=== PATIENT | female | born 1940 | race African-American/Black ===

== ENCOUNTER 2018-10-02 19:00 | Emergency (ER) | payer MEDICARE, MEDICAID ==
[~2018-10-02] VITALS: Ht 170.2 cm; Wt 80.0 kg
[~2018-10-02 19:00] MED LIST: AMLO10TA4; GLIM2TAB2; LEVO112T2; LEVO112T7; LOT10; ZET10 PO
[2018-10-02 20:30] VITALS: BP 129/56
== END 2018-10-02 20:27 | disposition home or self-care (01) ==
LOC: ER 19:00
DX: T49.0X1A Poisoning by local antifungal, anti-infective and anti-inflammatory drugs, accidental (unintentional), initial encounter (principal); I10 Essential (primary) hypertension; Y92.018 Other place in single-family (private) house as the place of occurrence of the external cause
CPT/HCPCS: 99283

== ENCOUNTER 2020-01-28 12:38 | Inpatient (IN) | payer MEDICARE, MEDICAID ==
[~2020-01-28] VITALS: Ht 162.6 cm; Wt 68.9 kg
[~2020-01-28 12:38] MED LIST changes: +BENA10TA75; +EZET10TA13 PO; -GLIM2TAB2; +GLIM2TAB30; -LOT10; -ZET10 PO
[2020-01-28 15:12] LABS: BASOPHILS % 0.7 % (0.0-2.0); EOSINOPHILS % 1.2 % (0.0-5.0); HEMATOCRIT. 37.6 % (36.0-48.0); HEMOGLOBIN. 12.6 g/dL (12.0-16.0); LYMPHOCYTES % 38.8 % (20.0-50.0); MEAN CORPUSCULAR HEMOGLOBIN 29.9 pg (28.0-32.0); MEAN CORPUSCULAR VOLUME 89.4 fL (81.0-99.0); MONOCYTES % 8.6 % (2.0-8.0); NEUTROPHILS % 50.7 % (40.0-76.0); PLATELET 203 x1000/uL (130-400); RED BLOOD CELL COUNT 4.21 mill/uL (4.2-5.4)
[2020-01-28 15:17] LABS: CHLORIDE 108 mEq/L (98-107)
[2020-01-28] MEDS ORDERED: POTASSIUM CHLORIDE 20MEQ TABLET SR PO ONE ×2 (16:15→17:00)
[2020-01-28] MEDS ORDERED: KCL 10MEQ/50ML PREMIX 50 ML IV ONE (16:15)
[2020-01-28] MEDS ORDERED: ACETAMINOPHEN 325MG TABLET PO PRN (17:00)
[2020-01-28] MEDS ORDERED: ONDANSETRON HCL 4MG/2ML INJ IV PRN (17:00)
[2020-01-28] MEDS: KCL 10MEQ/50ML PREMIX 50 ML IV SCH ×2 (17:00→20:38)
[2020-01-29 08:28] LABS: BASOPHILS % 0.5 % (0.0-2.0); EOSINOPHILS % 2.3 % (0.0-5.0); HEMATOCRIT. 35.4 % (36.0-48.0); HEMOGLOBIN. 11.7 g/dL (12.0-16.0); LYMPHOCYTES % 34.4 % (20.0-50.0); MEAN CORPUSCULAR HEMOGLOBIN 29.8 pg (28.0-32.0); MEAN CORPUSCULAR VOLUME 90.2 fL (81.0-99.0); MEAN PLATELET VOLUME 9.2 fl (7.4-10.4); MONOCYTES % 11.3 % (2.0-8.0); NEUTROPHILS % 51.5 % (40.0-76.0); PLATELET 188 x1000/uL (130-400); RED BLOOD CELL COUNT 3.92 mill/uL (4.2-5.4); RED CELL DISTRIBUTION WIDTH 14.8 % (11.6-14.6)
[2020-01-29 08:35] LABS: CHLORIDE 111 mEq/L (98-107)
[2020-01-29 10:00] VITALS: BP 105/40
[2020-01-29] MEDS ORDERED: POTASSIUM CHLORIDE 20MEQ TABLET SR PO NR (10:30)
[2020-01-29 10:39] VITALS: BP 105/40
[2020-01-29] MEDS: HEPARIN 5000 UNITS/ML VIAL SUBCUT SCH ×2 (11:52→20:50)
[2020-01-29 12:00] VITALS: BP 113/43
[2020-01-29] MEDS ORDERED: POTASSIUM CHLORIDE INJ 40 MEQ in DEXT 5% WATER 250 ML IV NR (13:00)
[2020-01-29] MEDS ORDERED: IBUP-2030 MT (13:32)
[2020-01-29] MEDS ORDERED: CHOL200077 MT (13:32)
[2020-01-29] MEDS ORDERED: LEVO88TA7 MT (13:32)
[2020-01-29 16:00] VITALS: BP 108/44
[2020-01-29 20:00] VITALS: BP 125/61
[2020-01-30] VITALS: BP 117/55
[2020-01-30 04:00] VITALS: BP 130/69
[2020-01-30 07:07] LABS: CHLORIDE 109 mEq/L (98-107)
[2020-01-30 08:00] VITALS: BP 146/69
[2020-01-30 08:17] LABS: BASOPHILS % 0.3 % (0.0-2.0); EOSINOPHILS % 2.4 % (0.0-5.0); HEMATOCRIT. 38.4 % (36.0-48.0); HEMOGLOBIN. 12.7 g/dL (12.0-16.0); LYMPHOCYTES % 44.2 % (20.0-50.0); MEAN CORPUSCULAR HEMOGLOBIN 29.9 pg (28.0-32.0); MEAN CORPUSCULAR VOLUME 90.7 fL (81.0-99.0); MEAN PLATELET VOLUME 9.5 fl (7.4-10.4); NEUTROPHILS % 43.1 % (40.0-76.0); PLATELET 191 x1000/uL (130-400); RED BLOOD CELL COUNT 4.24 mill/uL (4.2-5.4); RED CELL DISTRIBUTION WIDTH 15.1 % (11.6-14.6)
[2020-01-30] MEDS: HEPARIN 5000 UNITS/ML VIAL SUBCUT SCH (08:55)
[2020-01-30 11:59] VITALS: BP 122/54
== END 2020-01-30 12:30 | disposition home or self-care (01) | DRG 640 ==
LOC: ER 12:38 → 5WST 16:08 → EDBEDREQTM 16:12 → EDBEDREQ 16:12 → ENRESERV 01-29 07:40
PROVIDERS: ADMIT Internal Medicine; ATTEND Internal Medicine
DX: E87.6 Hypokalemia (principal); I50.41 Acute combined systolic (congestive) and diastolic (congestive) heart failure; Z87.891 Personal history of nicotine dependence; E03.9 Hypothyroidism, unspecified; I95.9 Hypotension, unspecified; E78.5 Hyperlipidemia, unspecified; Z79.84 Long term (current) use of oral hypoglycemic drugs; Z79.899 Other long term (current) drug therapy; Z82.49 Family history of ischemic heart disease and other diseases of the circulatory system; I11.0 Hypertensive heart disease with heart failure
CPT/HCPCS: 36415; 71045; 80053; 80061; 83735; 83880; 84443; 84484; 85025; 93005; 93306; 97162; 97535; 99291; J1644; J3480; J7060

== ENCOUNTER 2023-03-18 13:13 | Inpatient (IN) | payer MEDICARE, MEDICAID ==
[~2023-03-18] VITALS: Ht 167.6 cm; Wt 60.8 kg
[~2023-03-18 13:13] MED LIST changes: +CHOL200077 MT; -GLIM2TAB30; +IBUP-2030 MT; -LEVO112T2; -LEVO112T7; +LEVO88TA7 MT
[2023-03-18 14:36] LABS: BASOPHILS % 0.5 % (0.0-2.0); HEMATOCRIT. 31.4 % (36.0-48.0); HEMOGLOBIN. 10.2 g/dL (12.0-16.0); LYMPHOCYTES % 34.2 % (20.0-50.0); MEAN CORPUSCULAR HEMOGLOBIN 31.4 pg (28.0-32.0); MEAN CORPUSCULAR VOLUME 96.3 fL (81.0-99.0); MEAN PLATELET VOLUME 9.6 fl (7.4-10.4); MONOCYTES % 12.1 % (2.0-8.0); NEUTROPHILS % 52.2 % (40.0-76.0); PLATELET 256 x1000/uL (130-400); RED BLOOD CELL COUNT 3.25 mill/uL (4.2-5.4); RED CELL DISTRIBUTION WIDTH 15.6 % (11.6-14.6)
[2023-03-18 14:54] LABS: CHLORIDE 104 mEq/L (98-107)
[2023-03-18] MEDS ORDERED: POTASSIUM CHLORIDE 20MEQ/PACKET PO ONE (15:45)
[2023-03-18] MEDS ORDERED: POTASSIUM CHLORIDE 20MEQ/PACKET PO NR (19:00)
[2023-03-18] MEDS ORDERED: IPRATROPIUM/ALBUTEROL 0.5-3(2.5)MG/3ML NEB NEB PRN (22:45)
[2023-03-18] MEDS ORDERED: LORAZEPAM 2MG/ML CPJ IV PRN (22:45)
[2023-03-18] MEDS ORDERED: MORPHINE SULFATE 2 MG/ML CPJ (NOT FOR IM USE) IV PRN (22:45)
[2023-03-18] MEDS ORDERED: HYDROCODONE/ACETAMINOPHEN 5/325MG TABLET PO PRN (22:45)
[2023-03-18] MEDS ORDERED: ONDANSETRON HCL 4MG/2ML INJ IV PRN (22:45)
[2023-03-19 00:35] VITALS: BP 118/52; PULSE 93; RESP 18; TEMP 99.3
[2023-03-19 04:00] VITALS: BP 118/52; PULSE 93; RESP 18; TEMP 99.3
[2023-03-19 08:00] VITALS: BP 115/47; PULSE 92; RESP 19; TEMP 98.1
[2023-03-19] MEDS: SODIUM CHLORIDE 0.9% 1,000 ML IV SCH ×2 (08:30→18:30)
[2023-03-19 12:00] VITALS: BP 122/57; PULSE 72; RESP 17; TEMP 98.3
[2023-03-19 13:51] LABS: BASOPHILS % 0.4 % (0.0-2.0); EOSINOPHILS % 0.8 % (0.0-5.0); HEMATOCRIT. 33.6 % (36.0-48.0); LYMPHOCYTES % 25.5 % (20.0-50.0); MEAN CORPUSCULAR HEMOGLOBIN 31.3 pg (28.0-32.0); MEAN CORPUSCULAR VOLUME 95.8 fL (81.0-99.0); MEAN PLATELET VOLUME 10.2 fl (7.4-10.4); MONOCYTES % 11.1 % (2.0-8.0); NEUTROPHILS % 62.2 % (40.0-76.0); PLATELET 278 x1000/uL (130-400); RED BLOOD CELL COUNT 3.51 mill/uL (4.2-5.4); RED CELL DISTRIBUTION WIDTH 16.2 % (11.6-14.6)
[2023-03-19] MEDS: ENOXAPARIN 30MG/0.3ML SYR SUBCUT SCH (13:51)
[2023-03-19 14:09] LABS: CHLORIDE 104 mEq/L (98-107)
[2023-03-19 15:16] LABS: HEPATITIS B SURFACE ANTIGEN NEGATIVE
[2023-03-19 16:00] VITALS: BP 114/47; PULSE 81; RESP 19; TEMP 97.9
[2023-03-19 20:00] VITALS: BP 111/52; PULSE 78; RESP 19; TEMP 96.8
[2023-03-20] VITALS: BP 110/57; PULSE 72; RESP 19; TEMP 98.4
[2023-03-20 04:00] VITALS: BP 104/58; PULSE 89; RESP 19; TEMP 98.2
[2023-03-20 07:55] LABS: BASOPHILS % 0.5 % (0.0-2.0); EOSINOPHILS % 1.8 % (0.0-5.0); HEMATOCRIT. 32.7 % (36.0-48.0); HEMOGLOBIN. 10.6 g/dL (12.0-16.0); LYMPHOCYTES % 35.2 % (20.0-50.0); MEAN CORPUSCULAR HEMOGLOBIN 31.6 pg (28.0-32.0); MEAN CORPUSCULAR VOLUME 97.4 fL (81.0-99.0); MEAN PLATELET VOLUME 8.8 fl (7.4-10.4); MONOCYTES % 8.4 % (2.0-8.0); NEUTROPHILS % 54.1 % (40.0-76.0); PLATELET 179 x1000/uL (130-400); RED BLOOD CELL COUNT 3.35 mill/uL (4.2-5.4)
[2023-03-20 08:00] VITALS: BP 107/52; PULSE 87; RESP 20; TEMP 98.2
[2023-03-20 08:04] LABS: CHLORIDE 106 mEq/L (98-107); TOTAL IRON BINDING CAPACITY 151 ug/dL (250-450)
[2023-03-20 08:29] LABS: FOLIC ACID (FOLATE) SERUM 3.7 ng/mL (>5.38)
[2023-03-20] MEDS: POTASSIUM CHLORIDE 20MEQ TABLET SR PO SCH ×3 (09:00→17:44)
[2023-03-20] MEDS: ENOXAPARIN 30MG/0.3ML SYR SUBCUT SCH (09:00)
[2023-03-20] MEDS ORDERED: CYANOCOBALAMIN 1000MCG/ML VIAL IM SCH (10:30)
[2023-03-20 12:00] VITALS: BP 113/53; PULSE 96; RESP 20; TEMP 87.1
[2023-03-20] MEDS ORDERED: NALOXONE HCL 0.4MG/ML VIAL IV PRN (13:00)
[2023-03-20] MEDS: SODIUM CHLORIDE 0.9% 1,000 ML IV SCH (13:46)
[2023-03-20 16:00] VITALS: BP 110/72; PULSE 81; RESP 22; TEMP 97.8
[2023-03-20] MEDS: DEXAMETHASONE 4MG/ML 1ML VIAL IV SCH ×2 (17:46→23:55)
[2023-03-20 20:00] VITALS: BP 115/67; PULSE 95; RESP 19; TEMP 97.7
[2023-03-21] VITALS: BP 143/59; PULSE 94; RESP 18; TEMP 97.9
[2023-03-21] MEDS: SODIUM CHLORIDE 0.9% 1,000 ML IV SCH ×3 (00:30→11:22)
[2023-03-21] MEDS: DEXT 5%/LACTATED RINGERS 1,000 ML IV SCH ×2 (00:53→13:30)
[2023-03-21 04:00] VITALS: BP 125/56; PULSE 84; RESP 16; TEMP 97.5
[2023-03-21] MEDS: DEXAMETHASONE 4MG/ML 1ML VIAL IV SCH ×3 (05:55→17:33)
[2023-03-21 08:00] VITALS: BP 109/62; PULSE 87; RESP 18; TEMP 97.8
[2023-03-21] MEDS ORDERED: FOLIC ACID 1MG TABLET PO SCH (09:00)
[2023-03-21] MEDS ORDERED: ASCORBIC ACID 500 MG TABLET PO SCH (09:00)
[2023-03-21 12:00] VITALS: BP 96/57; PULSE 94; RESP 18; TEMP 98.3
[2023-03-21 16:00] VITALS: BP 114/63; PULSE 82; RESP 20; TEMP 97.9
[2023-03-21 16:35] LABS: T4 FREE 1.01 ng/dL (0.76-1.46)
[2023-03-21 20:00] VITALS: BP 121/52; PULSE 72; RESP 18; TEMP 96.8
[2023-03-22] VITALS (18 sets, daily range): BP systolic 98–153; BP diastolic 50–96; PULSE 67–101; RESP 12–32; TEMP 96.6–98.2
[2023-03-22] MEDS: DEXT 5%/LACTATED RINGERS 1,000 ML IV SCH ×2 (02:40→18:14)
[2023-03-22 07:34] LABS: CHLORIDE 109 mEq/L (98-107)
[2023-03-22] MEDS ORDERED: MAGNESIUM GLUCONATE 500MG TABLET PO SCH (08:45)
[2023-03-22] MEDS ORDERED: POTASSIUM CHLORIDE 20MEQ TABLET SR PO SCH (08:45)
[2023-03-22 11:04] LABS: BASOPHILS % 0.1 % (0.0-2.0); HEMOGLOBIN. 9.1 g/dL (12.0-16.0); LYMPHOCYTES % 11.3 % (20.0-50.0); MEAN CORPUSCULAR HEMOGLOBIN 31.3 pg (28.0-32.0); MEAN CORPUSCULAR VOLUME 94.2 fL (81.0-99.0); MEAN PLATELET VOLUME 8.7 fl (7.4-10.4); MONOCYTES % 5.3 % (2.0-8.0); NEUTROPHILS % 83.3 % (40.0-76.0); PLATELET 338 x1000/uL (130-400); RED BLOOD CELL COUNT 2.89 mill/uL (4.2-5.4); RED CELL DISTRIBUTION WIDTH 15.7 % (11.6-14.6)
[2023-03-22 11:05] LABS: HEMATOCRIT. 27.3 % (36.0-48.0)
[2023-03-22] MEDS ORDERED: LIDOCAINE HCL/EPINEPHRINE 1%-EPI 1:100,000 20 ML VIAL ONE (12:22)
[2023-03-22] MEDS ORDERED: CEFAZOLIN SODIUM 1000MG/VIAL ONE (12:22)
[2023-03-22] MEDS ORDERED: LIDOCAINE HCL 1% 10 MG/ML 10ML VIAL ONE (12:22)
[2023-03-22] MEDS ORDERED: PROPOFOL 200MG/20ML VIAL IV ONE (12:22)
[2023-03-22] MEDS ORDERED: ROCURONIUM BROMIDE 10MG/ML VIAL 5ML IV ONE ×2 (12:22→14:25)
[2023-03-22] MEDS ORDERED: GENTAMICIN SULF 40MG/ML 2ML VIAL ONE (12:23)
[2023-03-22] MEDS ORDERED: MIDAZOLAM HCL 2 MG/2 ML VIAL ONE (12:23)
[2023-03-22] MEDS ORDERED: FENTANYL CITRATE/PF 50MCG/ML 5ML VIAL ONE (12:23)
[2023-03-22] MEDS ORDERED: THROMBIN (BOVINE) 5000 UNITS/VIAL TOP ONE (12:23)
[2023-03-22] MEDS ORDERED: PHENYLEPHRINE HCL 10 MG/ML 1ML (IV VIAL) IV ONE (13:46)
[2023-03-22] MEDS: KCL 10MEQ/50ML PREMIX 50 ML IV SCH ×3 (14:00→21:53)
[2023-03-22] MEDS ORDERED: NEOSTIGMINE METHYLSULFATE 1MG/ML 10 ML VIAL ONE (15:19)
[2023-03-22] MEDS ORDERED: GLYCOPYRROLATE 0.2 MG/ML 2ML VIAL ONE (15:19)
[2023-03-22] MEDS ORDERED: HYDROMORPHONE HCL/PF 2MG/ML CPJ ONE (15:26)
[2023-03-22] MEDS ORDERED: NICARDIPINE 100 MG in SODIUM CHLORIDE 0.9% 60 ML IV PRN (15:45)
[2023-03-22] MEDS ORDERED: MORPHINE SULFATE 4 MG/ML CPJ (NOT FOR IM USE) IV PRN (15:45)
[2023-03-22] MEDS: DEXAMETHASONE 4MG/ML 1ML VIAL IV SCH (18:11)
[2023-03-22] MEDS: CEFAZOLIN 1000MG PREMIX 50 ML IV SCH (21:53)
[2023-03-22] MEDS ORDERED: CEFAZOLIN SODIUM 1000MG/VIAL IV SCH (22:00)
[2023-03-23] VITALS (42 sets, daily range): BP systolic 102–140; BP diastolic 42–115; PULSE 74–115; RESP 10–30; TEMP 96.5–98.9
[2023-03-23] MEDS: DEXT 5%/LACTATED RINGERS 1,000 ML IV SCH ×3 (02:18→21:45)
[2023-03-23] MEDS: DEXAMETHASONE 4MG/ML 1ML VIAL IV SCH ×4 (03:03→21:22)
[2023-03-23 04:31] LABS: HEMOGLOBIN. 8.6 g/dL (12.0-16.0); LYMPHOCYTES % 9.4 % (20.0-50.0); MEAN CORPUSCULAR HEMOGLOBIN 31.1 pg (28.0-32.0); MEAN CORPUSCULAR VOLUME 93.5 fL (81.0-99.0); MEAN PLATELET VOLUME 8.5 fl (7.4-10.4); MONOCYTES % 6.2 % (2.0-8.0); NEUTROPHILS % 84.4 % (40.0-76.0); PLATELET 314 x1000/uL (130-400); RED BLOOD CELL COUNT 2.78 mill/uL (4.2-5.4); RED CELL DISTRIBUTION WIDTH 15.6 % (11.6-14.6)
[2023-03-23 04:44] LABS: CHLORIDE 104 mEq/L (98-107)
[2023-03-23] MEDS: CEFAZOLIN 1000MG PREMIX 50 ML IV SCH ×3 (06:19→21:22)
[2023-03-23] MEDS ORDERED: POTASSIUM CHLORIDE 20MEQ TABLET SR PO NR (09:00)
[2023-03-23] MEDS ORDERED: MAGNESIUM 2 G PREMIX 50 ML IV NR (10:30)
[2023-03-23] MEDS: AMLODIPINE 5MG TABLET PO SCH ×2 (11:56→21:22)
[2023-03-23] MEDS ORDERED: NALOXONE HCL 0.4MG/ML VIAL IV PRN (15:45)
[2023-03-24] VITALS (10 sets, daily range): BP systolic 118–143; BP diastolic 54–94; PULSE 59–109; RESP 18–20; TEMP 97.7–98.8
[2023-03-24] MEDS: CEFAZOLIN 1000MG PREMIX 50 ML IV SCH ×3 (05:22→21:05)
[2023-03-24 07:05] LABS: BASOPHILS % 0.1 % (0.0-2.0); LYMPHOCYTES % 7.5 % (20.0-50.0); MEAN CORPUSCULAR HEMOGLOBIN 31.4 pg (28.0-32.0); MEAN CORPUSCULAR VOLUME 93.4 fL (81.0-99.0); MEAN PLATELET VOLUME 8.8 fl (7.4-10.4); MONOCYTES % 6.3 % (2.0-8.0); NEUTROPHILS % 86.1 % (40.0-76.0); PLATELET 357 x1000/uL (130-400); RED CELL DISTRIBUTION WIDTH 15.5 % (11.6-14.6)
[2023-03-24 07:18] LABS: CHLORIDE 103 mEq/L (98-107)
[2023-03-24 07:26] LABS: HEMOGLOBIN. 10.1 g/dL (12.0-16.0)
[2023-03-24 07:27] LABS: HEMATOCRIT. 29.9 % (36.0-48.0)
[2023-03-24] MEDS: DEXT 5%/LACTATED RINGERS 1,000 ML IV SCH ×2 (07:45→17:45)
[2023-03-24] MEDS: MAGNESIUM OXIDE 400MG TABLET PO SCH (09:00)
[2023-03-24] MEDS: POTASSIUM CHLORIDE 20MEQ TABLET SR PO SCH (09:27)
[2023-03-24] MEDS: AMLODIPINE 5MG TABLET PO SCH ×2 (09:27→21:05)
[2023-03-25] VITALS: BP 135/75; PULSE 97; RESP 18; TEMP 97.8
[2023-03-25 04:00] VITALS: BP 121/45; PULSE 105; RESP 16; TEMP 98.1
[2023-03-25] MEDS: ACETAMINOPHEN 325MG TABLET PO PRN ×2 (05:10→11:44)
[2023-03-25 08:00] VITALS: BP 131/62; PULSE 89; RESP 20; TEMP 97.8
[2023-03-25] MEDS: POTASSIUM CHLORIDE 20MEQ TABLET SR PO SCH (09:27)
[2023-03-25] MEDS: AMLODIPINE 5MG TABLET PO SCH ×2 (09:30→21:00)
[2023-03-25] MEDS: MAGNESIUM OXIDE 400MG TABLET PO SCH (09:30)
[2023-03-25 10:01] LABS: CHLORIDE 103 mEq/L (98-107)
[2023-03-25 12:00] VITALS: BP 131/81; PULSE 69; RESP 22; TEMP 98
[2023-03-25] MEDS ORDERED: HYDROCODONE/ACETAMINOPHEN 5/325MG TABLET PO PRN (13:45)
[2023-03-25 16:00] VITALS: BP 114/44; PULSE 104; RESP 22; TEMP 97.9
[2023-03-25 17:07] LABS: CHLORIDE 104 mEq/L (98-107)
[2023-03-25 17:14] LABS: BASOPHILS % 0.1 % (0.0-2.0); EOSINOPHILS % 0.2 % (0.0-5.0); HEMATOCRIT. 34.8 % (36.0-48.0); HEMOGLOBIN. 11.3 g/dL (12.0-16.0); LYMPHOCYTES % 12.9 % (20.0-50.0); MEAN CORPUSCULAR HEMOGLOBIN 30.9 pg (28.0-32.0); MEAN CORPUSCULAR VOLUME 94.9 fL (81.0-99.0); MONOCYTES % 5.7 % (2.0-8.0); NEUTROPHILS % 81.1 % (40.0-76.0); PLATELET 332 x1000/uL (130-400); RED BLOOD CELL COUNT 3.67 mill/uL (4.2-5.4); RED CELL DISTRIBUTION WIDTH 16.1 % (11.6-14.6)
[2023-03-25 20:00] VITALS: BP 110/45; PULSE 98; RESP 18; TEMP 98.1
[2023-03-25] MEDS: DEXT 5%/LACTATED RINGERS 1,000 ML IV SCH (23:45)
[2023-03-26] VITALS: BP 110/64; PULSE 104; RESP 20; TEMP 98.1
[2023-03-26] MEDS: CEFTRIAXONE 1,000 MG in DEXTROSE 5% WATER 50 ML IV SCH ×2 (00:27→05:13)
[2023-03-26 04:00] VITALS: BP 120/66; PULSE 103; RESP 19; TEMP 98.6
[2023-03-26 07:37] LABS: EOSINOPHILS % 0.3 % (0.0-5.0); HEMATOCRIT. 32.9 % (36.0-48.0); HEMOGLOBIN. 10.9 g/dL (12.0-16.0); LYMPHOCYTES % 13.2 % (20.0-50.0); MEAN CORPUSCULAR HEMOGLOBIN 31.2 pg (28.0-32.0); MEAN CORPUSCULAR VOLUME 94.7 fL (81.0-99.0); MEAN PLATELET VOLUME 9.4 fl (7.4-10.4); NEUTROPHILS % 79.5 % (40.0-76.0); PLATELET 281 x1000/uL (130-400); RED BLOOD CELL COUNT 3.48 mill/uL (4.2-5.4); RED CELL DISTRIBUTION WIDTH 15.6 % (11.6-14.6)
[2023-03-26 08:00] VITALS: BP 123/55; PULSE 102; RESP 20; TEMP 100
[2023-03-26 08:06] LABS: CHLORIDE 103 mEq/L (98-107)
[2023-03-26] MEDS ORDERED: POTASSIUM CHLORIDE 20MEQ TABLET SR PO NR (09:00)
[2023-03-26] MEDS: POTASSIUM CHLORIDE 20MEQ TABLET SR PO SCH (09:16)
[2023-03-26] MEDS: AMLODIPINE 5MG TABLET PO SCH (09:16)
[2023-03-26] MEDS: MAGNESIUM OXIDE 400MG TABLET PO SCH (09:16)
[2023-03-26] MEDS: DEXT 5%/LACTATED RINGERS 1,000 ML IV SCH (09:45)
[2023-03-26 12:00] VITALS: BP 117/68; PULSE 90; RESP 18; TEMP 98.8
[2023-03-26 12:08] VITALS: BP 123/55; PULSE 102; TEMP 100; O2SAT 98
[2023-04-02] MEDS ORDERED: CYANOCOBALAMIN 1000MCG/ML VIAL IM SCH (09:00)
== END 2023-03-26 16:20 | DRG 471 ==
LOC: ER 13:13 → 6EST 19:10 → EDBEDREQ 19:17 → EDBEDREQTM 19:17 → MICUSO 03-22 17:15 → 6WST 03-23 15:00
PROVIDERS: ADMIT Internal Medicine Nephrology; ATTEND Internal Medicine Nephrology
PROC: 0RG2071 Fusion of 2 or more Cervical Vertebral Joints with Autologous Tissue Substitute, Posterior Approach, Posterior Column, Open Approach (ICD-10-PCS; principal; 2023-03-22)
PROC: 01N10ZZ Release Cervical Nerve, Open Approach (ICD-10-PCS; 2023-03-22)
PROC: 00NW0ZZ Release Cervical Spinal Cord, Open Approach (ICD-10-PCS; 2023-03-22)
DX: M48.02 Spinal stenosis, cervical region (principal); A41.9 Sepsis, unspecified organism; G82.50 Quadriplegia, unspecified; G93.41 Metabolic encephalopathy; E87.20 Acidosis, unspecified; N39.0 Urinary tract infection, site not specified; G99.2 Myelopathy in diseases classified elsewhere; E03.9 Hypothyroidism, unspecified; E87.6 Hypokalemia; D50.9 Iron deficiency anemia, unspecified; G89.29 Other chronic pain; I10 Essential (primary) hypertension; M21.371 Foot drop, right foot; M47.9 Spondylosis, unspecified; D63.8 Anemia in other chronic diseases classified elsewhere; E53.8 Deficiency of other specified B group vitamins; M48.061 Spinal stenosis, lumbar region without neurogenic claudication; R29.6 Repeated falls; E11.9 Type 2 diabetes mellitus without complications; E83.42 Hypomagnesemia; Z91.81 History of falling; Z82.49 Family history of ischemic heart disease and other diseases of the circulatory system; Z87.891 Personal history of nicotine dependence; Z79.4 Long term (current) use of insulin
CPT/HCPCS: 36415; 70551; 71045; 72141; 72146; 72148; 72170; 72192; 80048; 80053; 82140; 82306; 82607; 82746; 82962; 83036; 83540; 83550; 83735; 84439; 84443; 84481; 85025; 86803; 86850; 86900; 87340; 88304; 88311; 92523; 92610; 93005; 93306; 95925; 95926; 95928; 95929; 97110; 97162; 97164; 97530; 99285; C1713; C1893; J0690; J0696; J1100; J1170; J1580; J1650; J2060; J2250; J2270; J2370; J2704; J2710; J3010; J3420; J3475; J3480; J3490; J7030; J7050; J7060; J7121; L0172

== ENCOUNTER 2023-05-30 01:24 | Inpatient (IN) | payer MEDICARE, MEDICAID ==
[2023-05-30] VITALS (11 sets, daily range): BP systolic 59–224; BP diastolic 35–201; PULSE 88–105; RESP 16–23; TEMP 97
[~2023-05-30] VITALS: Ht 167.6 cm; Wt 66.2 kg
[~2023-05-30 01:24] MED LIST changes: -EZET10TA13 PO; +EZET10TA81 PO
[2023-05-30] MEDS ORDERED: DEXTROSE 50% WATER 50ML SYRINGE IV ONE (01:45)
[2023-05-30] MEDS ORDERED: SODIUM CHLORIDE 0.9% 1,000 ML IV ONE (02:00)
[2023-05-30 02:10] LABS: CHLORIDE 124 mEq/L (98-107); INDEX HEMOLYSI 1 (1-3); INDEX ICTERIC 1 (1-4); INDEX LIPEMIC 1 (1-3); POTASSIUM 3.5 mEq/L (3.5-5.1); SODIUM 148 mEq/L (136-145)
[2023-05-30 02:14] LABS: BG BASE EXCESS -6.4 mmol/L (-2.0-2.0); BG CARBOXYHEMOGLOBIN 0.5 % (0.5-1.5); BG DEOXYHEMOGLOBIN 1.5 % (0.0-5.0); BG FRACTION INSPIRED OXYGEN 100; BG HCO3 ACT 17.5 mmol/L (22.0-26.0); BG METHEMOGLOBIN 0.3 % (0.0-1.5); BG OXYGEN SATURATION 98.5 % (92.0-98.5); BG OXYHEMOGLOBIN 97.7 % (94.0-97.0); BG PCO2 28.4 mmHg (35.0-45.0); BG PH 7.408 (7.350-7.450); BG PO2 387.8 mmHg (75.0-100.0); BG SAMPLE SITE LEFT RADIAL; BG VENT MODE MASK - NRB
[2023-05-30 02:15] LABS: INR 1.2
[2023-05-30 02:18] LABS: HEMOGLOBIN. 8.7 g/dL (12.0-16.0); MEAN CORPUSCULAR VOLUME 87.3 fL (81.0-99.0); MEAN PLATELET VOLUME 11.3 fl (7.4-10.4); PLATELET 115 x1000/uL (130-400); RED BLOOD CELL COUNT 3.21 mill/uL (4.2-5.4); RED CELL DISTRIBUTION WIDTH 19.5 % (11.6-14.6); WHITE BLOOD COUNT 32.2 x1000/uL (4.5-11.0)
[2023-05-30 02:19] LABS: ALANINE AMINOTRANSFERASE 18 IU/L (13-61); ALBUMIN 1.1 g/dL (3.4-5.0); ASPARTATE AMINOTRANSFERASE 19 IU/L (15-37); BILIRUBIN TOTAL 0.2 mg/dL (0.1-1.0); CALCIUM 8.1 mg/dL (8.5-10.1); CARBON DIOXIDE 21 mEq/L (21-32); CREATININE 0.6 mg/dL (0.6-1.3); ETHANOL BLOOD < 10 mg/dL (-10); GLUCOSE 99 mg/dL (70-105); PROTEIN TOTAL 5.7 g/dL (6.0-8.3); TROPONIN I HIGH SENSITIVITY 13 ng/L (<54); UREA NITROGEN BLOOD 15 mg/dL (7-21)
[2023-05-30 02:21] LABS: DIFFERENTIAL COMMENT 1
[2023-05-30] MEDS ORDERED: VANCOMYCIN 1G PREMIX 200 ML IV NR (03:00)
[2023-05-30] MEDS ORDERED: SODIUM CHLORIDE 0.9% 1000ML BAG (SEPSIS BOLUS) IV ONE (03:00)
[2023-05-30] MEDS ORDERED: CEFTRIAXONE 1GM PREMIX 50 ML IV NR (03:00)
[2023-05-30 03:13] LABS: INDEX HEMOLYSI 1 (1-3)
[2023-05-30 03:19] LABS: CREATINE KINASE 45 IU/L (26-192)
[2023-05-30 03:54] LABS: LACTIC ACID 2.7 mmol/L (0.4-2.0)
[2023-05-30] MEDS ORDERED: NOREPINEPHRINE 8MG/250ML PMX 250 ML IV ONE (04:15)
[2023-05-30 05:38] LABS: CLARITY URINE CLOUDY (CLEAR); COLOR URINE YELLOW (YELLOW); GLUCOSE URINE NEGATIVE (NEGATIVE); KETONES URINE NEGATIVE (NEGATIVE); LEUKOCYTE ESTERASE URINE 1+ (NEGATIVE); NITRITE URINE NEGATIVE (NEGATIVE); OCCULT BLOOD URINE TRACE (NEGATIVE); PROTEIN URINE TRACE (NEGATIVE); SPECIFIC GRAVITY URINE 1.017 (1.005-1.030); UROBILINOGEN URINE 0.2 E.U./dL (0.2-1.0)
[2023-05-30 06:15] LABS: *AMPHETAMINES SCREEN URINE NEGATIVE (NEGATIVE); *BARBITURATES SCREEN URINE NEGATIVE (NEGATIVE); *BENZODIAZEPINES SCREEN URINE NEGATIVE (NEGATIVE); *COCAINE SCREEN URINE NEGATIVE (NEGATIVE); CANNABINOID URINE SCREEN NEGATIVE (NEGATIVE); ECSTASY MDMA SCREEN URINE NEGATIVE (NEGATIVE); METHADONE URINE SCREEN NEGATIVE (NEGATIVE); OPIATES URINE SCREEN PRESUMTIVE POSITIVE (NEGATIVE); PHENCYCLIDINE URINE SCREEN NEGATIVE (NEGATIVE)
[2023-05-30 07:47] LABS: RBC URINE 0-2 /hpf (0-2)
[2023-05-30 07:48] LABS: SQUAMOUS EPITHELIAL CELL URINE FEW /lpf (RARE/1+)
[2023-05-30 07:49] LABS: BACTERIA URINE 3+; YEAST URINE 1+
[2023-05-30] MEDS ORDERED: DEXT 5%/0.45% NACL 500ML 500 ML IV SCH (08:30)
[2023-05-30] MEDS ORDERED: ONDANSETRON HCL 4MG/2ML INJ IV PRN (08:30)
[2023-05-30] MEDS ORDERED: PIPERACILLIN/TAZOBACTAM 3.375 G in DEXTROSE 5% WATER 50 ML IV SCH (08:30)
[2023-05-30] MEDS ORDERED: CLONIDINE 0.1MG TABLET PO PRN (08:30)
[2023-05-30] MEDS ORDERED: ACETAMINOPHEN 650MG SUPP PR PRN (08:30)
[2023-05-30 09:03] LABS: PLATELET ESTIMATE SLIGHTLY DECREASED
[2023-05-30 09:04] LABS: ANISOCYTOSIS 1+
[2023-05-30] MEDS: DEXT 5%/0.45% NACL 1000ML 1,000 ML IV SCH (09:20)
[2023-05-30] MEDS: PANTOPRAZOLE SODIUM 40 MG/VIAL IV SCH (09:53)
[2023-05-30] MEDS ORDERED: PIPERACILLIN/TAZ 3.375G PREMIX 50 ML IV NR (10:00)
[2023-05-30] MEDS ORDERED: ENOXAPARIN 30MG/0.3ML SYR SUBCUT SCH (10:00)
[2023-05-30 10:06] LABS: CHLORIDE 125 mEq/L (98-107); INDEX HEMOLYSI 1 (1-3); INDEX ICTERIC 1 (1-4); INDEX LIPEMIC 1 (1-3); SODIUM 149 mEq/L (136-145)
[2023-05-30 10:12] LABS: CALCIUM 7.2 mg/dL (8.5-10.1); CARBON DIOXIDE 19 mEq/L (21-32); CREATININE 0.5 mg/dL (0.6-1.3); GLUCOSE 161 mg/dL (70-105); IRON 22 ug/dL (50-175); TOTAL IRON BINDING CAPACITY 147 ug/dL (250-450); UREA NITROGEN BLOOD 13 mg/dL (7-21)
[2023-05-30 10:14] LABS: POTASSIUM 2.7 mEq/L (3.5-5.1)
[2023-05-30 10:35] LABS: FOLIC ACID (FOLATE) SERUM 2.1 ng/mL (>5.38)
[2023-05-30] MEDS: ENOXAPARIN 60MG/0.6ML SYR SUBCUT SCH (11:00)
[2023-05-30] MEDS ORDERED: POTASSIUM CHLORIDE INJ 60 MEQ in DEXT 5% WATER 500 ML IV NR (11:45)
[2023-05-30] MEDS ORDERED: LIDOCAINE HCL 1% 10 MG/ML 10ML VIAL ONE (12:50)
[2023-05-30] MEDS: NOREPINEPHRINE 8MG/250ML PMX 250 ML IV PRN ×2 (13:06→17:15)
[2023-05-30] MEDS: LEVOTHYROXINE SODIUM 88MCG TABLET PO SCH (14:07)
[2023-05-30 14:27] LABS: PHOSPHORUS 2.9 mg/dL (2.5-4.9)
[2023-05-30] MEDS ORDERED: IOHEXOL-350 100 ML BOTTLE ONE (14:53)
[2023-05-30] MEDS ORDERED: GADOTERATE MEGLUMINE 5 MMOL/10 ML VIAL IV ONE (16:29)
[2023-05-30 17:25] LABS: TROPONIN I HIGH SENSITIVITY 70 ng/L (<54)
[2023-05-30] MEDS: BLOOD SUGAR DIAGNOSTIC STRIP TEST SCH ×2 (17:55→21:00)
[2023-05-30] MEDS ORDERED: POTASSIUM CHLORIDE INJ 40 MEQ in DEXT 5% WATER 250 ML IV NR (18:30)
[2023-05-30] MEDS: INSULIN LISPRO (MEDIUM DOSE) 100 UNITS/ML SUBCUT SCH ×2 (18:50→21:00)
[2023-05-30] MEDS ORDERED: VANCOMYCIN 1G PREMIX 200 ML IV SCH (20:00)
[2023-05-30] MEDS: PIPERACILLIN/TAZOBACTAM 3.375 G in DEXTROSE 5% WATER 50 ML IV SCH (23:59)
[2023-05-31] VITALS (97 sets, daily range): BP systolic 66–130; BP diastolic 33–96; PULSE 76–114; RESP 11–28; TEMP 96–100.9
[2023-05-31] MEDS: NOREPINEPHRINE 8MG/250ML PMX 250 ML IV PRN ×2 (00:43→12:36)
[2023-05-31] MEDS: DEXT 5%/0.45% NACL 1000ML 1,000 ML IV SCH (00:44)
[2023-05-31] MEDS: ENOXAPARIN 60MG/0.6ML SYR SUBCUT SCH (00:44)
[2023-05-31 01:53] LABS: TROPONIN I HIGH SENSITIVITY 68 ng/L (<54)
[2023-05-31 04:59] LABS: HEMATOCRIT. 22.7 % (36.0-48.0); MEAN CORPUSCULAR HEMOGLOBIN 26.7 pg (28.0-32.0); MEAN CORPUSCULAR HGB CONC 30.5 g/dL (31.0-37.0); MEAN CORPUSCULAR VOLUME 87.6 fL (81.0-99.0); PLATELET 93 x1000/uL (130-400); RED BLOOD CELL COUNT 2.59 mill/uL (4.2-5.4); RED CELL DISTRIBUTION WIDTH 20.1 % (11.6-14.6); WHITE BLOOD COUNT 30.9 x1000/uL (4.5-11.0)
[2023-05-31 05:12] LABS: CHLORIDE 130 mEq/L (98-107); HEMOGLOBIN. 6.9 g/dL (12.0-16.0); INDEX HEMOLYSI 1 (1-3); INDEX ICTERIC 1 (1-4); INDEX LIPEMIC 1 (1-3); POTASSIUM 3.6 mEq/L (3.5-5.1); SODIUM 145 mEq/L (136-145)
[2023-05-31 05:13] LABS: DIFFERENTIAL COMMENT 1
[2023-05-31 05:28] LABS: CALCIUM 7.3 mg/dL (8.5-10.1); CARBON DIOXIDE 16 mEq/L (21-32); CREATININE 0.6 mg/dL (0.6-1.3); GLUCOSE 160 mg/dL (70-105); UREA NITROGEN BLOOD 12 mg/dL (7-21)
[2023-05-31 05:42] LABS: TROPONIN I HIGH SENSITIVITY 60 ng/L (<54)
[2023-05-31] MEDS: BLOOD SUGAR DIAGNOSTIC STRIP TEST SCH ×4 (06:05→21:18)
[2023-05-31] MEDS: PIPERACILLIN/TAZOBACTAM 3.375 G in DEXTROSE 5% WATER 50 ML IV SCH ×3 (06:08→22:53)
[2023-05-31] MEDS: INSULIN LISPRO (MEDIUM DOSE) 100 UNITS/ML SUBCUT SCH ×4 (06:09→21:00)
[2023-05-31] MEDS ORDERED: FUROSEMIDE 40MG/4ML VIAL IVP NR (08:30)
[2023-05-31 08:52] LABS: T4 FREE 0.55 ng/dL (0.76-1.46)
[2023-05-31] MEDS: PANTOPRAZOLE SODIUM 40 MG/VIAL IV SCH (09:14)
[2023-05-31] MEDS: SODIUM BICARBONATE 100 MEQ in DEXTROSE 5% WATER 1,000 ML IV SCH (09:14)
[2023-05-31 10:22] LABS: ANISOCYTOSIS 2+; HYPOCHROMASIA 1+; PLATELET ESTIMATE DECREASED
[2023-05-31] MEDS: LEVOTHYROXINE SODIUM 88MCG TABLET PO SCH (12:36)
[2023-05-31] MEDS: SODIUM HYPOCHLORITE (0.25%) 480ML SOLUTION (HALF STRENGTH) TOP SCH (19:02)
[2023-05-31] MEDS: VANCOMYCIN 1G PREMIX 200 ML IV SCH (21:21)
[2023-05-31] MEDS: HYDROCORTISONE SOD SUCCINATE 100 MG/2 ML VIAL IV SCH (21:21)
[2023-05-31] MEDS ORDERED: BENA10TA75 PO (22:41)
[2023-06-01] VITALS (83 sets, daily range): BP systolic 91–129; BP diastolic 39–85; PULSE 77–107; RESP 15–48; TEMP 97.4–99.1
[2023-06-01] MEDS: NOREPINEPHRINE 8MG/250ML PMX 250 ML IV PRN (04:02)
[2023-06-01] MEDS: SODIUM BICARBONATE 100 MEQ in DEXTROSE 5% WATER 1,000 ML IV SCH (04:02)
[2023-06-01 06:05] LABS: CHLORIDE 119 mEq/L (98-107); INDEX HEMOLYSI 4 (1-3); INDEX ICTERIC 1 (1-4); INDEX LIPEMIC 1 (1-3); SODIUM 147 mEq/L (136-145)
[2023-06-01 06:13] LABS: CALCIUM 7.3 mg/dL (8.5-10.1); CARBON DIOXIDE 19 mEq/L (21-32); CREATININE 0.8 mg/dL (0.6-1.3); GLUCOSE 208 mg/dL (70-105); UREA NITROGEN BLOOD 12 mg/dL (7-21)
[2023-06-01 06:16] LABS: POTASSIUM 3.4 mEq/L (3.5-5.1)
[2023-06-01] MEDS: BLOOD SUGAR DIAGNOSTIC STRIP TEST SCH ×4 (06:37→20:57)
[2023-06-01] MEDS: SODIUM HYPOCHLORITE (0.25%) 480ML SOLUTION (HALF STRENGTH) TOP SCH ×2 (06:41→17:28)
[2023-06-01] MEDS: PIPERACILLIN/TAZOBACTAM 3.375 G in DEXTROSE 5% WATER 50 ML IV SCH ×3 (06:41→22:13)
[2023-06-01] MEDS: HYDROCORTISONE SOD SUCCINATE 100 MG/2 ML VIAL IV SCH ×3 (06:41→22:13)
[2023-06-01] MEDS: INSULIN LISPRO (MEDIUM DOSE) 100 UNITS/ML SUBCUT SCH ×4 (06:42→20:56)
[2023-06-01] MEDS ORDERED: POTASSIUM CHLORIDE 20MEQ/PACKET PO NR (08:00)
[2023-06-01 09:22] LABS: HEMATOCRIT. 21.5 % (36.0-48.0); HEMOGLOBIN. 7.3 g/dL (12.0-16.0); MEAN CORPUSCULAR HEMOGLOBIN 29.4 pg (28.0-32.0); MEAN CORPUSCULAR HGB CONC 33.9 g/dL (31.0-37.0); MEAN CORPUSCULAR VOLUME 86.8 fL (81.0-99.0); MEAN PLATELET VOLUME 9.4 fl (7.4-10.4); RED BLOOD CELL COUNT 2.47 mill/uL (4.2-5.4); RED CELL DISTRIBUTION WIDTH 18.4 % (11.6-14.6); WHITE BLOOD COUNT 35.4 x1000/uL (4.5-11.0)
[2023-06-01 09:38] LABS: DIFFERENTIAL COMMENT 1
[2023-06-01] MEDS: LEVOTHYROXINE SODIUM 88MCG TABLET PO SCH (09:42)
[2023-06-01] MEDS: CITRIC ACID/SODIUM CITRATE SOLN 30ML UDC PO SCH ×3 (09:42→17:28)
[2023-06-01] MEDS: PANTOPRAZOLE SODIUM 40 MG/VIAL IV SCH (09:42)
[2023-06-01 09:45] LABS: CHLORIDE 121 mEq/L (98-107); INDEX HEMOLYSI 2 (1-3); INDEX ICTERIC 1 (1-4); INDEX LIPEMIC 1 (1-3); POTASSIUM 3.2 mEq/L (3.5-5.1); SODIUM 148 mEq/L (136-145)
[2023-06-01 09:58] LABS: ALANINE AMINOTRANSFERASE 22 IU/L (13-61); ASPARTATE AMINOTRANSFERASE 28 IU/L (15-37); BILIRUBIN TOTAL 0.2 mg/dL (0.1-1.0); CALCIUM 7.3 mg/dL (8.5-10.1); CARBON DIOXIDE 19 mEq/L (21-32); CREATININE 0.8 mg/dL (0.6-1.3); GLUCOSE 196 mg/dL (70-105); PROTEIN TOTAL 4.8 g/dL (6.0-8.3); UREA NITROGEN BLOOD 11 mg/dL (7-21)
[2023-06-01 10:07] LABS: PLATELET 288 x1000/uL (130-400)
[2023-06-01 10:09] LABS: ALBUMIN 0.9 g/dL (3.4-5.0); ANISOCYTOSIS 1+; NUCLEATED RED BLOOD CELLS 1 /100 WBC; PLATELET ESTIMATE NORMAL
[2023-06-01 10:10] LABS: TARGET CELLS FEW
[2023-06-01] MEDS: VANCOMYCIN 1G PREMIX 200 ML IV SCH (20:46)
[2023-06-02] VITALS (97 sets, daily range): BP systolic 85–150; BP diastolic 35–71; PULSE 69–128; RESP 12–46; TEMP 96.6–101.3
[2023-06-02] MEDS: NOREPINEPHRINE 8MG/250ML PMX 250 ML IV PRN (00:03)
[2023-06-02] MEDS: LEVOTHYROXINE SODIUM 100 MCG/ VIAL IV SCH ×2 (00:48→09:24)
[2023-06-02 05:20] LABS: CHLORIDE 119 mEq/L (98-107); INDEX HEMOLYSI 1 (1-3); INDEX ICTERIC 1 (1-4); INDEX LIPEMIC 1 (1-3); SODIUM 150 mEq/L (136-145)
[2023-06-02 05:25] LABS: HEMATOCRIT. 25.2 % (36.0-48.0); HEMOGLOBIN. 8.1 g/dL (12.0-16.0); MEAN CORPUSCULAR HEMOGLOBIN 27.4 pg (28.0-32.0); MEAN CORPUSCULAR HGB CONC 32.3 g/dL (31.0-37.0); MEAN CORPUSCULAR VOLUME 84.9 fL (81.0-99.0); MEAN PLATELET VOLUME 11.2 fl (7.4-10.4); PLATELET 59 x1000/uL (130-400); RED BLOOD CELL COUNT 2.97 mill/uL (4.2-5.4); RED CELL DISTRIBUTION WIDTH 18.3 % (11.6-14.6); WHITE BLOOD COUNT 28.4 x1000/uL (4.5-11.0)
[2023-06-02 05:27] LABS: CALCIUM 7.2 mg/dL (8.5-10.1); CARBON DIOXIDE 23 mEq/L (21-32); CREATININE 0.7 mg/dL (0.6-1.3); GLUCOSE 229 mg/dL (70-105); UREA NITROGEN BLOOD 13 mg/dL (7-21)
[2023-06-02 05:32] LABS: DIFFERENTIAL COMMENT 1
[2023-06-02] MEDS: HYDROCORTISONE SOD SUCCINATE 100 MG/2 ML VIAL IV SCH ×3 (05:50→21:05)
[2023-06-02] MEDS: PIPERACILLIN/TAZOBACTAM 3.375 G in DEXTROSE 5% WATER 50 ML IV SCH ×3 (05:50→21:06)
[2023-06-02 06:06] LABS: POTASSIUM 2.5 mEq/L (3.5-5.1)
[2023-06-02] MEDS: BLOOD SUGAR DIAGNOSTIC STRIP TEST SCH ×4 (06:07→21:10)
[2023-06-02] MEDS: SODIUM HYPOCHLORITE (0.25%) 480ML SOLUTION (HALF STRENGTH) TOP SCH ×2 (06:07→18:58)
[2023-06-02] MEDS: INSULIN LISPRO (MEDIUM DOSE) 100 UNITS/ML SUBCUT SCH (06:28)
[2023-06-02] MEDS ORDERED: DEXT 5%/0.45% NACL 500ML 500 ML IV SCH (07:00)
[2023-06-02] MEDS ORDERED: NOREPINEPHRINE 8MG/250ML PMX 250 ML IV PRN (07:14)
[2023-06-02] MEDS ORDERED: POTASSIUM CHLORIDE 20MEQ TABLET SR PO SCH (08:00)
[2023-06-02] MEDS ORDERED: POTASSIUM CHLORIDE INJ 60 MEQ in DEXT 5% WATER 500 ML IV SCH (09:00)
[2023-06-02 09:16] LABS: ANISOCYTOSIS 2+; PLATELET ESTIMATE DECREASED
[2023-06-02] MEDS: DEXT 5%/0.45% NACL 1000ML 1,000 ML IV SCH ×2 (09:22→23:55)
[2023-06-02] MEDS: CITRIC ACID/SODIUM CITRATE SOLN 30ML UDC PO SCH ×3 (09:23→18:59)
[2023-06-02] MEDS: PANTOPRAZOLE SODIUM 40 MG/VIAL IV SCH (09:23)
[2023-06-02 09:37] LABS: LACTIC ACID 3.6 mmol/L (0.4-2.0)
[2023-06-02] MEDS: INSULIN LISPRO 100 UNITS/ML SUBCUT SCH ×3 (14:22→21:09)
[2023-06-02] MEDS: VANCOMYCIN 1G PREMIX 200 ML IV SCH (20:25)
[2023-06-02] MEDS ORDERED: FLUCONAZOLE 100MG TABLET PO SCH (23:00)
[2023-06-03] VITALS (50 sets, daily range): BP systolic 95–129; BP diastolic 32–103; PULSE 89–120; RESP 16–42; TEMP 97.5–98.7
[2023-06-03] MEDS: SODIUM HYPOCHLORITE (0.25%) 480ML SOLUTION (HALF STRENGTH) TOP SCH ×2 (05:18→18:43)
[2023-06-03] MEDS: HYDROCORTISONE SOD SUCCINATE 100 MG/2 ML VIAL IV SCH ×3 (05:19→21:14)
[2023-06-03] MEDS: PIPERACILLIN/TAZOBACTAM 3.375 G in DEXTROSE 5% WATER 50 ML IV SCH (05:19)
[2023-06-03] MEDS: INSULIN LISPRO 100 UNITS/ML SUBCUT SCH ×4 (06:24→21:15)
[2023-06-03] MEDS: BLOOD SUGAR DIAGNOSTIC STRIP TEST SCH ×4 (06:25→21:05)
[2023-06-03 08:32] LABS: BG BASE EXCESS -4.5 mmol/L (-2.0-2.0); BG CARBOXYHEMOGLOBIN 0.9 % (0.5-1.5); BG DEOXYHEMOGLOBIN 5.2 % (0.0-5.0); BG METHEMOGLOBIN 0.3 % (0.0-1.5); BG OXYGEN SATURATION 94.7 % (92.0-98.5); BG OXYHEMOGLOBIN 93.6 % (94.0-97.0); BG PCO2 25.1 mmHg (35.0-45.0); BG PH 7.473 (7.350-7.450); BG PO2 73.7 mmHg (75.0-100.0); BG SAMPLE SITE RIGHT BRACHIAL; BG TOTAL HEMOGLOBIN 10.2 g/dL (12.0-18.0); BG VENT MODE MASK - SIMPLE
[2023-06-03 08:40] LABS: HEMATOCRIT. 28.9 % (36.0-48.0); HEMOGLOBIN. 9.2 g/dL (12.0-16.0); MEAN CORPUSCULAR HEMOGLOBIN 27.6 pg (28.0-32.0); MEAN CORPUSCULAR HGB CONC 31.7 g/dL (31.0-37.0); MEAN CORPUSCULAR VOLUME 87.1 fL (81.0-99.0); MEAN PLATELET VOLUME 11.7 fl (7.4-10.4); RED BLOOD CELL COUNT 3.32 mill/uL (4.2-5.4); RED CELL DISTRIBUTION WIDTH 18.5 % (11.6-14.6)
[2023-06-03 09:03] LABS: DIFFERENTIAL COMMENT 1
[2023-06-03 09:06] LABS: PLATELET 40 x1000/uL (130-400)
[2023-06-03] MEDS: CITRIC ACID/SODIUM CITRATE SOLN 30ML UDC PO SCH ×3 (09:20→17:28)
[2023-06-03] MEDS: PANTOPRAZOLE SODIUM 40 MG/VIAL IV SCH (09:20)
[2023-06-03] MEDS: INSULIN GLARGINE 100 UNITS/ML SUBCUT SCH (09:27)
[2023-06-03] MEDS: LEVOTHYROXINE SODIUM 100 MCG/ VIAL IV SCH (09:27)
[2023-06-03 09:44] LABS: CHLORIDE 121 mEq/L (98-107); INDEX HEMOLYSI 4 (1-3); INDEX ICTERIC 1 (1-4); INDEX LIPEMIC 1 (1-3); SODIUM 148 mEq/L (136-145)
[2023-06-03 09:51] LABS: ALANINE AMINOTRANSFERASE 28 IU/L (13-61); ASPARTATE AMINOTRANSFERASE 55 IU/L (15-37); BILIRUBIN TOTAL 0.4 mg/dL (0.1-1.0); CALCIUM 7.6 mg/dL (8.5-10.1); CARBON DIOXIDE 21 mEq/L (21-32); CREATININE 0.7 mg/dL (0.6-1.3); GLUCOSE 196 mg/dL (70-105); PROTEIN TOTAL 4.8 g/dL (6.0-8.3); UREA NITROGEN BLOOD 21 mg/dL (7-21)
[2023-06-03 09:59] LABS: ALBUMIN 0.8 g/dL (3.4-5.0); POTASSIUM 3.5 mEq/L (3.5-5.1)
[2023-06-03] MEDS ORDERED: DILTIAZEM HCL 125 MG in DEXT 5% WATER 100 ML IV PRN (11:00)
[2023-06-03 12:07] LABS: CREATINE KINASE MB FRACTION 2.2 ng/mL (0.5-3.6)
[2023-06-03 13:56] LABS: PLATELET ESTIMATE MARKEDLY DECREASED
[2023-06-03 13:57] LABS: ANISOCYTOSIS 2+
[2023-06-03] MEDS: MIDODRINE HCL 5MG TABLET PO SCH ×2 (14:00→17:28)
[2023-06-03] MEDS: DEXT 5%/0.45% NACL 1000ML 1,000 ML IV SCH (17:26)
[2023-06-03] MEDS: CEFEPIME 2,000 MG in DEXT 5% WATER 100 ML IV SCH (18:00)
[2023-06-03] MEDS: MICAFUNGIN 100 MG in SODIUM CHLORIDE 0.9% 100 ML IV SCH (19:09)
[2023-06-03] MEDS: VANCOMYCIN 1G PREMIX 200 ML IV SCH (21:13)
[2023-06-03] MEDS: METRONIDAZOLE 500MG TABLET PO SCH (21:14)
[2023-06-04] VITALS (52 sets, daily range): BP systolic 95–116; BP diastolic 40–65; PULSE 76–97; RESP 14–22; TEMP 96.5–98.6
[2023-06-04] MEDS: DEXT 5%/0.45% NACL 1000ML 1,000 ML IV SCH (03:09)
[2023-06-04 05:08] LABS: HEMATOCRIT. 23.4 % (36.0-48.0); HEMOGLOBIN. 7.5 g/dL (12.0-16.0); MEAN CORPUSCULAR HEMOGLOBIN 27.3 pg (28.0-32.0); MEAN CORPUSCULAR HGB CONC 32.1 g/dL (31.0-37.0); MEAN CORPUSCULAR VOLUME 84.8 fL (81.0-99.0); MEAN PLATELET VOLUME 11.1 fl (7.4-10.4); RED BLOOD CELL COUNT 2.76 mill/uL (4.2-5.4); RED CELL DISTRIBUTION WIDTH 18.6 % (11.6-14.6); WHITE BLOOD COUNT 23.5 x1000/uL (4.5-11.0)
[2023-06-04 05:24] LABS: CHLORIDE 119 mEq/L (98-107); INDEX HEMOLYSI 1 (1-3); INDEX ICTERIC 1 (1-4); INDEX LIPEMIC 1 (1-3); SODIUM 149 mEq/L (136-145)
[2023-06-04 05:30] LABS: CALCIUM 7.1 mg/dL (8.5-10.1); CARBON DIOXIDE 25 mEq/L (21-32); CREATININE 0.7 mg/dL (0.6-1.3); GLUCOSE 276 mg/dL (70-105); UREA NITROGEN BLOOD 22 mg/dL (7-21)
[2023-06-04] MEDS: BLOOD SUGAR DIAGNOSTIC STRIP TEST SCH ×4 (05:30→21:25)
[2023-06-04 05:47] LABS: DIFFERENTIAL COMMENT 1
[2023-06-04 05:52] LABS: PLATELET 29 x1000/uL (130-400)
[2023-06-04] MEDS: CEFEPIME 2,000 MG in DEXT 5% WATER 100 ML IV SCH ×2 (05:53→17:39)
[2023-06-04] MEDS: HYDROCORTISONE SOD SUCCINATE 100 MG/2 ML VIAL IV SCH ×3 (05:53→23:12)
[2023-06-04] MEDS: METRONIDAZOLE 500MG TABLET PO SCH ×3 (05:53→23:12)
[2023-06-04] MEDS: SODIUM HYPOCHLORITE (0.25%) 480ML SOLUTION (HALF STRENGTH) TOP SCH ×2 (05:54→17:53)
[2023-06-04] MEDS ORDERED: KCL 20MEQ/100ML PREMIX 100 ML IV ONE (06:15)
[2023-06-04] MEDS: INSULIN LISPRO 100 UNITS/ML SUBCUT SCH ×5 (06:24→21:22)
[2023-06-04] MEDS: KCL 20MEQ/100ML X 2 FOR TOTAL KCL 40MEQ/200ML IV SCH ×2 (06:42→08:29)
[2023-06-04] MEDS: CITRIC ACID/SODIUM CITRATE SOLN 30ML UDC PO SCH (08:28)
[2023-06-04] MEDS: PANTOPRAZOLE SODIUM 40 MG/VIAL IV SCH (08:28)
[2023-06-04] MEDS: LEVOTHYROXINE SODIUM 100 MCG/ VIAL IV SCH (08:29)
[2023-06-04] MEDS ORDERED: MAGNESIUM 2 G PREMIX 50 ML IV NR (08:30)
[2023-06-04] MEDS ORDERED: MIDODRINE HCL 5MG TABLET PO NR (09:00)
[2023-06-04] MEDS ORDERED: MIDODRINE HCL 5MG TABLET PO SCH (09:00)
[2023-06-04] MEDS: SPIRONOLACTONE 25MG TABLET NG SCH ×2 (10:19→17:53)
[2023-06-04] MEDS: INSULIN GLARGINE 100 UNITS/ML SUBCUT SCH (10:20)
[2023-06-04] MEDS: MIDODRINE HCL 5MG TABLET NG SCH ×2 (13:10→17:52)
[2023-06-04 13:37] LABS: ANISOCYTOSIS 1+; NUCLEATED RED BLOOD CELLS 1 /100 WBC; PLATELET ESTIMATE MARKEDLY DECREASED
[2023-06-04] MEDS: IPRATROPIUM/ALBUTEROL 0.5-3(2.5)MG/3ML NEB HHN SCH (14:33)
[2023-06-04] MEDS: MICAFUNGIN 100 MG in SODIUM CHLORIDE 0.9% 100 ML IV SCH (18:30)
[2023-06-04] MEDS: KCL 20MEQ/100ML PREMIX 100 ML IV SCH ×2 (20:07→22:18)
[2023-06-04 21:37] LABS: CALCIUM 6.3 mg/dL (8.5-10.1); CHLORIDE 124 mEq/L (98-107); INDEX HEMOLYSI 3 (1-3); INDEX ICTERIC 1 (1-4); INDEX LIPEMIC 1 (1-3); POTASSIUM 3.5 mEq/L (3.5-5.1); SODIUM 151 mEq/L (136-145)
[2023-06-04 21:41] LABS: CARBON DIOXIDE 21 mEq/L (21-32); CREATININE 0.6 mg/dL (0.6-1.3); GLUCOSE 180 mg/dL (70-105); UREA NITROGEN BLOOD 21 mg/dL (7-21)
[2023-06-04] MEDS: VANCOMYCIN 1G PREMIX 200 ML IV SCH (23:10)
[2023-06-05] VITALS (10 sets, daily range): BP systolic 95–119; BP diastolic 48–54; PULSE 95–105; RESP 16–46; TEMP 97.2–97.4; O2SAT 96
[2023-06-05] MEDS: CEFEPIME 2,000 MG in DEXT 5% WATER 100 ML IV SCH ×3 (05:26→22:43)
[2023-06-05] MEDS: METRONIDAZOLE 500MG TABLET PO SCH ×3 (05:27→22:44)
[2023-06-05] MEDS: HYDROCORTISONE SOD SUCCINATE 100 MG/2 ML VIAL IV SCH (05:28)
[2023-06-05] MEDS: SODIUM HYPOCHLORITE (0.25%) 480ML SOLUTION (HALF STRENGTH) TOP SCH ×2 (05:28→17:22)
[2023-06-05] MEDS: BLOOD SUGAR DIAGNOSTIC STRIP TEST SCH ×4 (07:30→21:00)
[2023-06-05 07:52] LABS: CHLORIDE 120 mEq/L (98-107); INDEX HEMOLYSI 1 (1-3); INDEX ICTERIC 1 (1-4); INDEX LIPEMIC 1 (1-3); SODIUM 149 mEq/L (136-145)
[2023-06-05 07:56] LABS: CALCIUM 6.7 mg/dL (8.5-10.1); CARBON DIOXIDE 27 mEq/L (21-32); CREATININE 0.6 mg/dL (0.6-1.3); GLUCOSE 140 mg/dL (70-105); UREA NITROGEN BLOOD 22 mg/dL (7-21)
[2023-06-05 07:59] LABS: HEMATOCRIT. 22.6 % (36.0-48.0); HEMOGLOBIN. 7.3 g/dL (12.0-16.0); MEAN CORPUSCULAR HEMOGLOBIN 27.1 pg (28.0-32.0); MEAN CORPUSCULAR HGB CONC 32.1 g/dL (31.0-37.0); MEAN CORPUSCULAR VOLUME 84.3 fL (81.0-99.0); RED BLOOD CELL COUNT 2.68 mill/uL (4.2-5.4); RED CELL DISTRIBUTION WIDTH 18.1 % (11.6-14.6)
[2023-06-05] MEDS: INSULIN LISPRO 100 UNITS/ML SUBCUT SCH ×4 (08:00→21:00)
[2023-06-05 08:01] LABS: POTASSIUM 2.8 mEq/L (3.5-5.1)
[2023-06-05 08:20] LABS: DIFFERENTIAL COMMENT 1
[2023-06-05] MEDS: IPRATROPIUM/ALBUTEROL 0.5-3(2.5)MG/3ML NEB HHN SCH ×2 (08:36→20:57)
[2023-06-05] MEDS: PANTOPRAZOLE SODIUM 40 MG/VIAL IV SCH (09:46)
[2023-06-05] MEDS: MIDODRINE HCL 5MG TABLET NG SCH ×3 (09:46→17:19)
[2023-06-05] MEDS: SPIRONOLACTONE 25MG TABLET NG SCH ×2 (09:47→17:19)
[2023-06-05] MEDS: INSULIN GLARGINE 100 UNITS/ML SUBCUT SCH (09:48)
[2023-06-05] MEDS ORDERED: POTASSIUM CHLORIDE 20MEQ TABLET SR PO NR (11:00)
[2023-06-05 11:23] LABS: ANISOCYTOSIS 1+; PLATELET ESTIMATE MARKEDLY DECREASED
[2023-06-05] MEDS ORDERED: KCL 20MEQ/100ML PREMIX 100 ML IV NR (12:30)
[2023-06-05 13:38] LABS: MEAN PLATELET VOLUME 13.9 fl (7.4-10.4); PLATELET 38 x1000/uL (130-400)
[2023-06-05] MEDS: LEVOTHYROXINE SODIUM 100 MCG/ VIAL IV SCH (14:20)
[2023-06-05] MEDS ORDERED: POTASSIUM CHLORIDE INJ 40 MEQ in DEXT 5% WATER 250 ML IV NR (15:00)
[2023-06-05 15:10] LABS: BG BASE EXCESS -3.6 mmol/L (-2.0-2.0); BG DEOXYHEMOGLOBIN 17.8 % (0.0-5.0); BG FRACTION INSPIRED OXYGEN 100; BG HCO3 ACT 21.5 mmol/L (22.0-26.0); BG METHEMOGLOBIN 0.3 % (0.0-1.5); BG OXYHEMOGLOBIN 80.9 % (94.0-97.0); BG PCO2 38.7 mmHg (35.0-45.0); BG PH 7.362 (7.350-7.450); BG PO2 48.1 mmHg (75.0-100.0); BG SAMPLE SITE LEFT RADIAL; BG TOTAL HEMOGLOBIN 10.6 g/dL (12.0-18.0); BG VENT MODE MASK - NRB
[2023-06-05 17:04] LABS: BG BASE EXCESS -2.4 mmol/L (-2.0-2.0); BG CARBOXYHEMOGLOBIN 0.5 % (0.5-1.5); BG DEOXYHEMOGLOBIN 1.8 % (0.0-5.0); BG FRACTION INSPIRED OXYGEN 100; BG HCO3 ACT 20.8 mmol/L (22.0-26.0); BG METHEMOGLOBIN 0.3 % (0.0-1.5); BG OXYGEN SATURATION 98.2 % (92.0-98.5); BG OXYHEMOGLOBIN 97.4 % (94.0-97.0); BG PCO2 30.5 mmHg (35.0-45.0); BG PH 7.451 (7.350-7.450); BG PO2 147.4 mmHg (75.0-100.0); BG SAMPLE SITE RIGHT RADIAL; BG TOTAL HEMOGLOBIN 10.5 g/dL (12.0-18.0); BG VENT MODE MASK - BIPAP
[2023-06-05] MEDS: MICAFUNGIN 100 MG in SODIUM CHLORIDE 0.9% 100 ML IV SCH (17:53)
[2023-06-05 21:03] LABS: POTASSIUM 3.3 mEq/L (3.5-5.1)
[2023-06-05] MEDS: DEXTROSE 50% WATER 50ML SYRINGE IV PRN (22:44)
[2023-06-05] MEDS: VANCOMYCIN 1G PREMIX 200 ML IV SCH (22:47)
[2023-06-06] VITALS (17 sets, daily range): BP systolic 100–117; BP diastolic 50–60; PULSE 86–101; RESP 22–38; TEMP 97.2–97.8
[2023-06-06] MEDS: IPRATROPIUM/ALBUTEROL 0.5-3(2.5)MG/3ML NEB HHN SCH ×4 (02:06→20:58)
[2023-06-06] MEDS: ACETYLCYSTEINE 100MG/ML 10% VIAL 4ML INH SCH ×2 (02:07→10:32)
[2023-06-06 05:50] LABS: CHLORIDE 118 mEq/L (98-107); INDEX HEMOLYSI 1 (1-3); INDEX ICTERIC 1 (1-4); INDEX LIPEMIC 1 (1-3); SODIUM 146 mEq/L (136-145)
[2023-06-06] MEDS: METRONIDAZOLE 500MG TABLET PO SCH ×3 (05:54→20:35)
[2023-06-06] MEDS: SODIUM HYPOCHLORITE (0.25%) 480ML SOLUTION (HALF STRENGTH) TOP SCH ×2 (05:55→17:50)
[2023-06-06] MEDS: CEFEPIME 2,000 MG in DEXT 5% WATER 100 ML IV SCH ×2 (05:55→17:48)
[2023-06-06 05:56] LABS: CALCIUM 7.8 mg/dL (8.5-10.1); CARBON DIOXIDE 21 mEq/L (21-32); CREATININE 0.6 mg/dL (0.6-1.3); GLUCOSE 225 mg/dL (70-105); UREA NITROGEN BLOOD 27 mg/dL (7-21)
[2023-06-06] MEDS: BLOOD SUGAR DIAGNOSTIC STRIP TEST SCH ×4 (07:30→23:33)
[2023-06-06] MEDS: INSULIN LISPRO 100 UNITS/ML SUBCUT SCH ×4 (08:00→23:33)
[2023-06-06 08:29] LABS: HEMATOCRIT. 24.3 % (36.0-48.0); HEMOGLOBIN. 7.4 g/dL (12.0-16.0); MEAN CORPUSCULAR HEMOGLOBIN 26.4 pg (28.0-32.0); MEAN CORPUSCULAR HGB CONC 30.4 g/dL (31.0-37.0); MEAN CORPUSCULAR VOLUME 86.7 fL (81.0-99.0); MEAN PLATELET VOLUME 15.4 fl (7.4-10.4)
[2023-06-06 08:32] LABS: DIFFERENTIAL COMMENT 1; PLATELET 49 x1000/uL (130-400); WHITE BLOOD COUNT 42.6 x1000/uL (4.5-11.0)
[2023-06-06 09:07] LABS: BG BASE EXCESS -3.6 mmol/L (-2.0-2.0); BG CARBOXYHEMOGLOBIN 1.4 % (0.5-1.5); BG DEOXYHEMOGLOBIN 3.7 % (0.0-5.0); BG FRACTION INSPIRED OXYGEN 60; BG HCO3 ACT 19.6 mmol/L (22.0-26.0); BG METHEMOGLOBIN 0.3 % (0.0-1.5); BG OXYGEN SATURATION 96.2 % (92.0-98.5); BG OXYHEMOGLOBIN 94.6 % (94.0-97.0); BG PCO2 28.1 mmHg (35.0-45.0); BG PH 7.461 (7.350-7.450); BG PO2 85.5 mmHg (75.0-100.0); BG SAMPLE SITE RIGHT RADIAL; BG TOTAL HEMOGLOBIN 7.7 g/dL (12.0-18.0); BG TOTAL RESPIRATORY RATE 34 b/min; BG VENT MODE MASK - BIPAP
[2023-06-06] MEDS: PANTOPRAZOLE SODIUM 40 MG/VIAL IV SCH (09:15)
[2023-06-06] MEDS: SPIRONOLACTONE 25MG TABLET NG SCH ×3 (09:16→17:47)
[2023-06-06] MEDS: MIDODRINE HCL 5MG TABLET NG SCH ×3 (09:17→17:47)
[2023-06-06] MEDS: INSULIN GLARGINE 100 UNITS/ML SUBCUT SCH (09:24)
[2023-06-06] MEDS: LEVOTHYROXINE SODIUM 100 MCG/ VIAL IV SCH (09:41)
[2023-06-06] MEDS ORDERED: POTASSIUM CHLORIDE 20MEQ TABLET SR PO NR (10:00)
[2023-06-06 11:03] LABS: ANISOCYTOSIS 1+; NUCLEATED RED BLOOD CELLS 1 /100 WBC; PLATELET ESTIMATE MARKEDLY DECREASED
[2023-06-06 11:04] LABS: HYPOCHROMASIA 1+
[2023-06-06] MEDS: MICAFUNGIN 100 MG in SODIUM CHLORIDE 0.9% 100 ML IV SCH (17:48)
[2023-06-06] MEDS: VANCOMYCIN 1G PREMIX 200 ML IV SCH (20:34)
[2023-06-07] VITALS (17 sets, daily range): BP systolic 99–112; BP diastolic 39–66; PULSE 89–105; RESP 18–43; TEMP 96.9–98.4
[2023-06-07] MEDS: IPRATROPIUM/ALBUTEROL 0.5-3(2.5)MG/3ML NEB HHN SCH ×4 (00:53→21:23)
[2023-06-07] MEDS: ACETYLCYSTEINE 100MG/ML 10% VIAL 4ML INH SCH ×3 (00:53→14:00)
[2023-06-07] MEDS: CEFEPIME 2,000 MG in DEXT 5% WATER 100 ML IV SCH ×2 (05:45→17:41)
[2023-06-07] MEDS: METRONIDAZOLE 500MG TABLET PO SCH ×3 (05:45→23:00)
[2023-06-07] MEDS: BLOOD SUGAR DIAGNOSTIC STRIP TEST SCH ×3 (05:47→17:41)
[2023-06-07] MEDS: SODIUM HYPOCHLORITE (0.25%) 480ML SOLUTION (HALF STRENGTH) TOP SCH ×2 (05:54→17:42)
[2023-06-07] MEDS: INSULIN LISPRO 100 UNITS/ML SUBCUT SCH ×3 (05:58→17:45)
[2023-06-07] MEDS: DEXTROSE 50% WATER 50ML SYRINGE IV PRN ×2 (05:58→13:14)
[2023-06-07 06:19] LABS: CALCIUM 7.6 mg/dL (8.5-10.1); CARBON DIOXIDE 23 mEq/L (21-32); CHLORIDE 121 mEq/L (98-107); INDEX HEMOLYSI 1 (1-3); INDEX ICTERIC 1 (1-4); INDEX LIPEMIC 1 (1-3); MEAN CORPUSCULAR HEMOGLOBIN 27.3 pg (28.0-32.0); MEAN CORPUSCULAR HGB CONC 31.8 g/dL (31.0-37.0); MEAN CORPUSCULAR VOLUME 85.8 fL (81.0-99.0); RED BLOOD CELL COUNT 2.58 mill/uL (4.2-5.4); SODIUM 150 mEq/L (136-145); UREA NITROGEN BLOOD 23 mg/dL (7-21); WHITE BLOOD COUNT 34.1 x1000/uL (4.5-11.0)
[2023-06-07 06:25] LABS: CREATININE 0.6 mg/dL (0.6-1.3); GLUCOSE 136 mg/dL (70-105)
[2023-06-07 06:43] LABS: POTASSIUM 2.6 mEq/L (3.5-5.1)
[2023-06-07 07:01] LABS: DIFFERENTIAL COMMENT 1
[2023-06-07 07:02] LABS: HEMATOCRIT. 22.2 % (36.0-48.0)
[2023-06-07] MEDS ORDERED: POTASSIUM CHLORIDE INJ 60 MEQ in DEXT 5% WATER 250 ML IV ONE (07:15)
[2023-06-07] MEDS ORDERED: POTASSIUM CHLORIDE 20MEQ/PACKET PO NR (07:15)
[2023-06-07] MEDS: PANTOPRAZOLE SODIUM 40 MG/VIAL IV SCH (08:05)
[2023-06-07] MEDS: SPIRONOLACTONE 25MG TABLET NG SCH ×2 (08:05→16:34)
[2023-06-07] MEDS: MIDODRINE HCL 5MG TABLET NG SCH ×3 (08:05→16:34)
[2023-06-07 08:12] LABS: BG BASE EXCESS -2.3 mmol/L (-2.0-2.0); BG DEOXYHEMOGLOBIN 8.5 % (0.0-5.0); BG FRACTION INSPIRED OXYGEN 60; BG HCO3 ACT 21.3 mmol/L (22.0-26.0); BG METHEMOGLOBIN 0.3 % (0.0-1.5); BG OXYGEN SATURATION 91.4 % (92.0-98.5); BG OXYHEMOGLOBIN 90.2 % (94.0-97.0); BG PCO2 31.1 mmHg (35.0-45.0); BG PH 7.453 (7.350-7.450); BG PO2 63.2 mmHg (75.0-100.0); BG SAMPLE SITE RIGHT RADIAL; BG TOTAL HEMOGLOBIN 7.6 g/dL (12.0-18.0); BG VENT MODE MASK - BIPAP
[2023-06-07] MEDS: KCL 20MEQ/100ML X 3 FOR TOTAL KCL 60MEQ/300ML IV SCH ×3 (08:26→13:14)
[2023-06-07] MEDS: INSULIN GLARGINE 100 UNITS/ML SUBCUT SCH (10:33)
[2023-06-07] MEDS: LEVOTHYROXINE SODIUM 100 MCG/ VIAL IV SCH (10:36)
[2023-06-07 15:04] LABS: PLATELET ESTIMATE MARKEDLY DECREASED
[2023-06-07 15:07] LABS: ANISOCYTOSIS 2+
[2023-06-07 15:08] LABS: PLATELET 39 x1000/uL (130-400)
[2023-06-07] MEDS ORDERED: AZITHROMYCIN 500 MG TABLET PO SCH (16:00)
[2023-06-07] MEDS: MICAFUNGIN 100 MG in SODIUM CHLORIDE 0.9% 100 ML IV SCH (23:01)
[2023-06-08] VITALS: BP 114/49; PULSE 112; RESP 45; TEMP 97.5
[2023-06-08] MEDS: INSULIN LISPRO 100 UNITS/ML SUBCUT SCH
[2023-06-08] MEDS: BLOOD SUGAR DIAGNOSTIC STRIP TEST SCH
[2023-06-08 02:00] VITALS: BP 99/46; PULSE 118; RESP 44
[2023-06-08 02:48] VITALS: RESP 21
[2023-06-08] MEDS: IPRATROPIUM/ALBUTEROL 0.5-3(2.5)MG/3ML NEB HHN SCH (02:48)
[2023-06-08] MEDS: ACETYLCYSTEINE 100MG/ML 10% VIAL 4ML INH SCH (02:49)
[2023-06-08 03:10] VITALS: PULSE 78; RESP 18
[2023-06-08] MEDS ORDERED: NOREPINEPHRINE 32 MG in DEXT 5% WATER 218 ML IV PRN (04:00)
[2023-06-08] MEDS ORDERED: VANCOMYCIN 750MG PREMIX 150 ML IV SCH (06:00)
== END 2023-06-08 04:24 | DRG 871 ==
LOC: ER 01:24 → EDBEDREQ 02:54 → EDBEDREQSVC 02:54 → EDBEDREQTM 02:54 → EDBEDREQSVC 05:41 → EDBEDREQ 07:11 → MICUSO 20:44 → 5EST 06-04 15:40
PROVIDERS: ADMIT Internal Medicine Nephrology; ATTEND Internal Medicine Nephrology
PROC: 05H933Z Insertion of Infusion Device into Right Brachial Vein, Percutaneous Approach (ICD-10-PCS; 2023-05-30)
PROC: B54MZZA Ultrasonography of Right Upper Extremity Veins, Guidance (ICD-10-PCS; 2023-05-30)
PROC: 02HV33Z Insertion of Infusion Device into Superior Vena Cava, Percutaneous Approach (ICD-10-PCS; 2023-05-30)
PROC: B548ZZA Ultrasonography of Superior Vena Cava, Guidance (ICD-10-PCS; 2023-05-30)
PROC: 30243N1 Transfusion of Nonautologous Red Blood Cells into Central Vein, Percutaneous Approach (ICD-10-PCS; principal; 2023-05-31)
PROC: 5A09457 Assistance with Respiratory Ventilation, 24-96 Consecutive Hours, Continuous Positive Airway Pressure (ICD-10-PCS; 2023-06-05)
PROC: 5A12012 Performance of Cardiac Output, Single, Manual (ICD-10-PCS; 2023-06-08)
PROC: 0BH17EZ Insertion of Endotracheal Airway into Trachea, Via Natural or Artificial Opening (ICD-10-PCS; 2023-06-08)
DX: A41.9 Sepsis, unspecified organism (principal); E43 Unspecified severe protein-calorie malnutrition; G82.50 Quadriplegia, unspecified; L89.154 Pressure ulcer of sacral region, stage 4; J96.01 Acute respiratory failure with hypoxia; J69.0 Pneumonitis due to inhalation of food and vomit; R65.21 Severe sepsis with septic shock; G92.8 Other toxic encephalopathy; N17.0 Acute kidney failure with tubular necrosis; N39.0 Urinary tract infection, site not specified; E87.1 Hypo-osmolality and hyponatremia; K80.00 Calculus of gallbladder with acute cholecystitis without obstruction; M86.9 Osteomyelitis, unspecified; I82.412 Acute embolism and thrombosis of left femoral vein; M50.00 Cervical disc disorder with myelopathy, unspecified cervical region; E87.0 Hyperosmolality and hypernatremia; M46.28 Osteomyelitis of vertebra, sacral and sacrococcygeal region; I50.32 Chronic diastolic (congestive) heart failure; E11.649 Type 2 diabetes mellitus with hypoglycemia without coma; B96.89 Other specified bacterial agents as the cause of diseases classified elsewhere; E55.9 Vitamin D deficiency, unspecified; M48.061 Spinal stenosis, lumbar region without neurogenic claudication; B96.5 Pseudomonas (aeruginosa) (mallei) (pseudomallei) as the cause of diseases classified elsewhere; D69.6 Thrombocytopenia, unspecified; R26.89 Other abnormalities of gait and mobility; E87.6 Hypokalemia; D63.8 Anemia in other chronic diseases classified elsewhere; Z68.23 Body mass index [BMI] 23.0-23.9, adult; E11.69 Type 2 diabetes mellitus with other specified complication; Z20.822 Contact with and (suspected) exposure to COVID-19; E87.5 Hyperkalemia; I46.9 Cardiac arrest, cause unspecified; F03.90 Unspecified dementia, unspecified severity, without behavioral disturbance, psychotic disturbance, mood disturbance, and anxiety; F17.200 Nicotine dependence, unspecified, uncomplicated; I11.0 Hypertensive heart disease with heart failure; R20.0 Anesthesia of skin; M19.90 Unspecified osteoarthritis, unspecified site; Z79.899 Other long term (current) drug therapy
CPT/HCPCS: 31500; 36415; 36573; 36600; 70551; 71045; 71275; 72146; 72148; 72156; 76700; 78227; 80048; 80053; 80202; 80305; 80320; 81003; 82270; 82375; 82550; 82553; 82607; 82728; 82746; 82805; 82962; 83540; 83550; 83605; 83735; 83930; 83935; 84100; 84132; 84133; 84145; 84439; 84443; 84481; 84484; 85025; 85651; 86376; 86850; 86900; 86920; 87077; 87106; 87186; 87426; 87449; 92950; 93005; 93306; 93880; 93923; 93970; 94002; 94640; 94660; 99291; A6261; A9537; A9577; C1725; C9113; C9803; J0692; J0696; J1650; J1720; J1815; J1940; J2248; J2543; J3370; J3475; J3480; J3490; J7030; J7050; J7060; J7070; J7608; P9016; Q9967; A4315; G0480